=== PATIENT | female | born 1940 | race Caucasian/White ===

== ENCOUNTER 2019-06-02 20:38 | Emergency (ER) | payer OTHER, MEDICAID ==
[~2019-06-02] VITALS: Ht 167.6 cm; Wt 88.9 kg
[2019-06-02 20:42] VITALS: Ht 167.6 cm; Wt 88.9 kg
[2019-06-02 21:38] LABS: BASOPHIL % 0.7 % (0-2); PLATELET COUNT 253 x10^3mcL (130-400); RED CELL DISTRIBUTION WIDTH 13.5 % (11.5-14.5)
[2019-06-02 21:42] LABS: CALCIUM 8.5 mg/dL (8.5-10.1); CARBON DIOXIDE 28.9 mmol/L (21-32); CHLORIDE SERUM 105 mmol/L (98-107); CREATININE SERUM 1.3 mg/dL (0.6-1.0); GLUCOSE SERUM 101 mg/dL (74-106); SODIUM SERUM 142 mmol/L (136-145)
[2019-06-02 21:47] LABS: ALBUMIN 3.5 g/dL (3.4-5.0); ALKALINE PHOSPHATASE 71 U/L (46-116); BILIRUBIN TOTAL 0.6 mg/dL (0.20-1.00); LIPASE 269 IU/L (73-393); TOTAL PROTEIN, SERUM 7.3 g/dL (6.4-8.2)
[2019-06-02 22:00] LABS: AST/SGOT 51 U/L (15-37)
[2019-06-02 22:13] LABS: ALT/SGPT 15 U/L (14-59)
[2019-06-02 23:46] VITALS: BP 147/89
== END 2019-06-02 23:47 | disposition left against medical advice (07) ==
LOC: ED 20:38
PROVIDERS: Emergency Medicine
DX: R07.89 Other chest pain (principal); R06.02 Shortness of breath; R10.13 Epigastric pain; I10 Essential (primary) hypertension
CPT/HCPCS: 36415; 83880; 85378; Q0092